=== PATIENT | male | born 1965 | race Caucasian/White ===

== ENCOUNTER 2017-02-21 17:36 | Emergency (ER) | payer OTHER ==
[2017-02-21 17:53] VITALS: BP 116/78
[2017-02-21] MEDS ORDERED: Lidocaine/Epineph/Tetraca SOL* (LET solution) 4 ML BTL TOPICAL ONE (18:00)
--- NOTE | 2017-02-21 18:00 | UC ---
Laceration HPI - HPI Summary HPI Summary: 51 YEAR OLD MALE PRESENTS WITH LACERATION ON HIS CHIN SECONDARY TO PLASTIC. - History Of Current Complaint Chief Complaint: UCLaceration Stated Complaint: LACERATION ON CHINC Time Seen by Provider: 02/21/17 17:56 Hx Obtained From: Patient Laceration Location: Face - CHIN Mechanism Of Injury: Sharp Trauma Onset/Duration: Sudden Onset Pain Scale Used: 0-10 Numeric - 5 - Allergies/Home Medications Allergies/Adverse Reactions: Allergies Allergy/AdvReac Type Severity Reaction Status Date / Time No Known Allergies Allergy Verified 02/21/17 17:53 PMH/Surg Hx/FS Hx/Imm Hx Previously Healthy: Yes - Surgical History Surgical History: None - Social History Alcohol Use: Rare Substance Use Type: None Smoking Status (MU): Never Smoked Tobacco - Immunization History Most Recent Tetanus Shot: not sure Review of Systems Constitutional: Negative Skin: Other - LACERATION CHIN Eyes: Negative ENT: Negative Respiratory: Negative Cardiovascular: Negative Gastrointestinal: Negative Genitourinary: Negative Motor: Negative Neurovascular: Negative Musculoskeletal: Negative Neurological: Negative Psychological: Negative All Other Systems Reviewed And Are Negative: Yes Physical Exam Triage Information Reviewed: Yes Vital Signs: Initial Vital Signs Temp 37.2 C 02/21/17 17:49 Pulse 61 02/21/17 17:49 Resp 18 02/21/17 17:49 BP 116/78 02/21/17 17:49 Pulse Ox 99 02/21/17 17:49 Vital Signs Reviewed: Yes Eye Exam: Normal ENT Exam: Normal Dental Exam: Normal Neck exam: Normal Neck: Positive: 1 Respiratory Exam: Normal Cardiovascular Exam: Normal Abdominal Exam: Normal Musculoskeletal Exam: Normal Neurological Exam: Normal Psychological Exam: Normal Skin: Positive: Other - LACERATION CHIN Laceration Repair - Laceration Repair 1 Laceration Size After Repair: Length (cm) - 3 LACERATION 1) < 2.5 CM 2) < 2.5 CM 3) 2.5 TO 5 CM Modified For Repair: No Type Injection: Local - LET Cleansing Completed Via Routine Prep: Yes Irrigation With Pressure Irrigation Device: Yes Closure Material: Sutures - 9 Closure Method: Single Layer Suture Of: Skin Suture Type: Nylon - 6.0 Laceration Course/Dx - Differential Dx - Laceration/Wound Provider Diagnoses: LACERATION CHIN X 3 Discharge - Discharge Plan Condition: Stable Disposition: HOME Prescriptions: Cephalexin CAP* [Keflex CAP*] 500 mg PO TID #30 cap Patient Education Materials: Care For Your Stitches (ED), Laceration (ED) Referrals: No Primary Care Phys,NOPCP [Primary Care Provider] -
[2017-02-21] MEDS ORDERED: Tetan/Diph/Pertus SYR(Tdap)* 0.5 ML SYR(BOOSTRIX) use SYR IM ONE (18:02)
[2017-02-21] MEDS ORDERED: Lidocaine 1% MPF* 2 ML VIAL INJ ONE (18:06)
[2017-02-21] MEDS ORDERED: Lidocaine 1% MPF* 2 ML VIAL ONE (18:07)
[2017-02-21] MEDS ORDERED: Cephalexin CAP* 500 MG PO ONE ×2 (18:55→19:09)
== END 2017-02-21 19:16 | disposition home or self-care (01) ==
LOC: UCEAST 17:36
DX: S01.81XA Laceration without foreign body of other part of head, initial encounter (principal); W45.8XXA Other foreign body or object entering through skin, initial encounter; Y92.9 Unspecified place or not applicable
CPT/HCPCS: 12004; 90471; 90715; 99202; A9270-GY; G0463